=== PATIENT | male | born 1985 | race Two or more races ===

== ENCOUNTER 2022-01-29 08:47 | Emergency (ER) | payer OTHER ==
[~2022-01-29] VITALS: Ht 188 cm; Wt 95.0 kg
[2022-01-29] MEDS ORDERED: ALBUAER3 IN (10:12)
[2022-01-29] MEDS ORDERED: ACETAMINOPHEN 325 MG TAB PO ONE (12:00)
[2022-01-29 12:07] VITALS: BP 132/88
== END 2022-01-29 12:08 | disposition home or self-care (01) ==
LOC: ER 08:47
DX: J98.01 Acute bronchospasm (principal); J68.9 Unspecified respiratory condition due to chemicals, gases, fumes and vapors; F12.10 Cannabis abuse, uncomplicated
CPT/HCPCS: 71046; 93005